=== PATIENT | male | born 1960 | race African-American/Black ===

== ENCOUNTER 2017-03-14 12:18 | Inpatient (IN) | payer OTHER ==
--- NOTE | 2017-03-14 18:11 | HP ---
Admission [facility] Chief Complaint: I WANT TO GO TO REHAB COMPLETED ACI DETOX DISCHARGED 03/617 Allergies/Adverse Reactions: Allergies Allergy/AdvReac Type Severity Reaction Status Date / Time Fish Containing Products Allergy Severe Difficulty Verified 03/14/17 16:52 Breathing lisinopril Allergy Severe Swelling Verified 03/14/17 16:52 haloperidol [From Haldol] AdvReac Severe Verified 03/14/17 16:52 haloperidol lactate AdvReac Severe Verified 03/14/17 16:52 [From Haldol] History of Present Illness: 56 YEARS OLD MALE WITH LONG HISTORY OF ALCOHOL, OPIATE, COCAINE DEPENDENCE HAS HYPERTENSION Exam Limitations: No Limitations - Ebola screening Have you traveled outside of the country in the last 21 days: No Have you had contact with anyone from an Ebola affected area: No Have you been sick,other than usual withdrawal symptoms: No Do you have a fever: No - Review of Systems Constitutional: Weight Stable EENT: reports: Blurred Vision (EYE GLASSES) Respiratory: reports: No Symptoms reported Cardiac: reports: No Symptoms Reported GI: reports: No Symptoms Reported : reports: No Symptoms Reported Musculoskeletal: reports: No Symptoms Reported Integumentary: reports: No Symptoms Reported Neuro: reports: No Symptoms reported Endocrine: reports: No Symptoms Reported Hematology: reports: No Symptoms Reported Psychiatric: reports: Judgement Intact, Mood/Affect Appropiate, Orientated x3 Other Systems: Reviewed and Negative Patient History - Patient Medical History Hx Anemia: No Hx Asthma: No Hx Chronic Obstructive Pulmonary Disease (COPD): No Hx Cancer: No Hx Cardiac Disorders: No Hx Congestive Heart Failure: No Hx Hypertension: Yes Hx Hypercholesterolemia: No Hx Pacemaker: No HX Cerebrovascular Accident: No Hx Seizures: No Hx Dementia: No Hx Diabetes: No Hx Gastrointestinal Disorders: No Hx Liver Disease: No Hx Genitourinary Disorders: No Hx Sexually Transmitted Disorders: No Hx Renal Disease (ESRD): No Hx Thyroid Disease: No Hx Human Immunodeficiency Virus (HIV): No Hx Hepatitis C: No Hx Depression: No Hx Suicide Attempt: Yes (CUT WRISTS 1997) Hx Bipolar Disorder: No Hx Schizophrenia: Yes - Patient Surgical History Past Surgical History: Yes Hx Neurologic Surgery: No Hx Cataract Extraction: No Hx Cardiac Surgery: No Hx Lung Surgery: No Hx Breast Surgery: No Hx Breast Biopsy: No Hx Abdominal Surgery: Yes (RIGHT TESTICLE AGE 9) Hx Appendectomy: Yes (9 YEARS OLD) Hx Genitourinary Surgery: Yes (RIGHT KIDNEY TUMOR REMOVED 2014) Hx Orthopedic Surgery: No Anesthesia Reaction: No - PPD History Previous Implant?: Yes Documented Results: Negative w/o proof Implanted On Prior R Admission?: No PPD to be Administered?: Yes - Smoking Cessation Smoking history: Never smoked Have you smoked in the past 12 months: No Hx Chewing Tobacco Use: No Initiated information on smoking cessation: No - Substance & Tx. History Hx Alcohol Use: Yes Hx Substance Use: Yes Substance Use Type: Alcohol, Cocaine, Heroin Hx Substance Use Treatment: Yes ([facility] 03/2017) - Substances Abused Alcohol Route: Oral Frequency: Daily Amount used: 2 and 1/2 pints vodka Age of first use: 14 Date of Last Use: 03/09/17 Crack Route: Smoking Frequency: Daily Amount used: $200 Age of first use: 29 Date of Last Use: 03/09/17 Heroin Route: Inhalation Frequency: Daily Amount used: 3 bags Age of first use: 29 Date of Last Use: 03/10/17 Family Disease History - Family Disease History Family Disease History: Heart Disease: Mother, Brother, Sister, Other: Father ( /SHOT) Admission Physical Exam S - Vital Signs Vital Signs: Vital Signs - 24 hr 03/14/17 14:15 Temperature 97.9 F Pulse Rate 64 Respiratory 20 Rate Blood Pressure 162/88 - Physical General Appearance: Yes: No Apparent Distress, Appropriately Dressed, Obese HEENTM: Yes: Hearing grossly Normal, Normal ENT Inspection, Normocephalic, Normal Voice Respiratory: Yes: Chest Non-Tender, Lungs Clear, Normal Breath Sounds, No Respiratory Distress, No Accessory Muscle Use Neck: Yes: Supple, Trachea in good position Breast: Yes: Breasts Symetrical Cardiology: Yes: Regular Rhythm, Regular Rate, S1, S2 Abdominal: Yes: Normal Bowel Sounds, Non Tender, Flat, Soft Genitourinary: Yes: Within Normal Limits Back: Yes: Normal Inspection Musculoskeletal: Yes: full range of Motion, Gait Steady Extremities: Yes: Normal Inspection, Normal Range of Motion, Non-Tender Neurological: Yes: Fully Oriented, Alert, Motor Strength 5/5, Normal Mood/Affect , Normal Response Integumentary: Yes: Warm Lymphatic: Yes: Within Normal Limits - Diagnostic (1) Alcohol dependence with uncomplicated withdrawal Current Visit: Yes Status: Acute (2) Opioid dependence with withdrawal Current Visit: Yes Status: Acute (3) Cocaine dependence, uncomplicated Current Visit: Yes Status: Chronic (4) Hypertension Current Visit: Yes Status: Acute Qualifiers: Hypertension type: essential hypertension Qualified Code(s): I10 - Essential (primary) hypertension; I10 - Essential (primary) hypertension; I10 - Essential (primary) hypertension (5) Schizoaffective disorder Current Visit: Yes Status: Suspected Qualifiers: Schizoaffective disorder type: unspecified Qualified Code(s): F25.9 - Schizoaffective disorder, unspecified; F25.9 - Schizoaffective disorder, unspecified; F25.9 - Schizoaffective disorder, unspecified; F25.9 - Schizoaffective disorder, unspecified Cleared for Admission S - Detox or Rehab [facility] Level of Care: Observation Bed Detox Regimen/Protocol: Not Applicable Claeared for Rehab Admission: Yes S Breath Alcohol Content Breath Alcohol Content: 0 Vital Signs - Vital Signs BP Location: Left Arm Blood Pressure Position: Sitting - Height Height: 5 ft 11 in - Weight Weight: 280 lb Weight Measurement Method: Standing Scale Body Mass Index (BMI): 39.0 - Bowel Function Bowel Movement: Yes Urine Drug Screen - Results Drug Screen Negative: No Urine Drug Screen Results: BZO-Benzodiazepines Inpatient Rehab Admission - Initial Determination Are CD services needed?: Yes Free of communicable disease: Yes Not in need of hospitalization: Yes - Rehab Admission Criteria Previous failed treatment: Yes Poor recovery environment: Yes Comorbidities: Yes Lacks judgement: No Patient is meeting Inpatient Rehab admission criteria:: Yes
[2017-03-14] MEDS ORDERED: guaiFENesin/D-METHORPHAN HB 10 ML UNIT-DOSE CUPS PO PRN (18:15)
[2017-03-14] MEDS ORDERED: P-EPHED 60MG/TRIPROLIDI 2.5MG TABLET PO PRN (18:15)
[2017-03-14] MEDS ORDERED: MAGNESIUM CITRATE 300 ML BOTTLE PO PRN (18:15)
[2017-03-14] MEDS ORDERED: MENTHOL/PHENOL 1 EACH UD MM PRN (18:15)
[2017-03-14] MEDS ORDERED: MAG HYDROX/AL HYDROX/SIMETH 30 ML UNIT-DOSE CUP PO PRN (18:15)
[2017-03-14] MEDS ORDERED: MAGNESIUM HYDROX 2400MG/30ML ORAL SUSPENSION 30 ML CUP PO PRN (18:15)
[2017-03-14] MEDS ORDERED: LOPERAMIDE HCL 2 MG CAPSULE PO PRN (18:15)
[2017-03-14] MEDS ORDERED: ACETAMINOPHEN 325 MG TABLET (FP) PO PRN (18:15)
[2017-03-14 18:38] VITALS: BMI 39.0
[2017-03-14] MEDS ORDERED: NIFEdipine E.R 60 MG TABLET (UD) PO ONE (22:00)
[2017-03-14] MEDS: THIAMINE HCL 100 MG TABLET (FP) PO SCH (22:02)
--- NOTE | 2017-03-14 22:43 | PN ---
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 New admission : 56 y/o AA male with Schizoaffective Disorder. Additional issues : alcohol/opiate/cocaine dependence. Discharged from [facility]/referred to [facility] on 03/14/17. Medications : buspar 20 mg po bid + prozac 40 mg/day + zyprexa 10 mg po bid. Spoke to patient via telephone.History taken.S report reviewed. Mr Pineda insists on getting his evening dose of zyprexa + buspar. Will only order olanzapine 10 mg po (one dose). Side effects/benefits discussed with patient. Full regimen to be determined in AM.
[2017-03-14] MEDS ORDERED: OLANZapine 10 MG TABLET PO ONE (22:51)
[2017-03-15 00:26] LABS: PH,URINE 6.5 (5.0-8.0); URINE APPEARANCE CLEAR; URINE BILIRUBIN NEGATIVE (NEGATIVE); URINE BLOOD NEGATIVE (NEGATIVE); URINE COLOR LT. YELLOW; URINE GLUCOSE (UA) NEGATIVE (NEGATIVE); URINE KETONE NEGATIVE (NEGATIVE); URINE NITRITE NEGATIVE (NEGATIVE); URINE PROTEIN NEGATIVE (NEGATIVE); URINE UROBILINOGEN 0.2 mg/dL (0.2-1.0)
[2017-03-15] MEDS: cloNIDine HCL 0.1 MG TABLET PO PRN (07:27)
[2017-03-15 09:59] LABS: URINE LEUK ESTERASE Negative (NEGATIVE)
[2017-03-15] MEDS: HYDROCHLOROTHIAZIDE 25 MG TABLET (FP) PO SCH (10:24)
[2017-03-15] MEDS: LOSARTAN POTASSIUM 50 MG TABLET (FP) PO SCH (10:24)
[2017-03-15] MEDS: PRENATAL VITAMINS W/ FOLIC ACID TABLET (FP) PO SCH (10:24)
[2017-03-15] MEDS: NIFEdipine E.R. 90 MG TABLET (FP) PO SCH (10:24)
[2017-03-15] MEDS: RIFAMPIN PO SCH ×3 (10:25→17:31)
[2017-03-15] MEDS: LEVOFLOXACIN PO SCH (10:25)
[2017-03-15] MEDS ORDERED: metroNIDAZOLE 250 MG TABLET PO ONE (10:58)
[2017-03-15] MEDS ORDERED: metroNIDAZOLE 250 MG TABLET PO SCH (11:00)
[2017-03-15] MEDS ORDERED: busPIRone HCL 10 MG TABLET (FP) PO ONE (11:06)
[2017-03-15] MEDS: OLANZapine 10 MG TABLET PO SCH ×2 (11:09→21:41)
[2017-03-15] MEDS: FLUoxetine HCL 20 MG CAPSULE (FP) PO SCH (11:09)
[2017-03-15] MEDS: PATIENT'S OWN MEDICATION (NON-FORMULARY) (Metronidazole [Flagyl -] 500 MG) PO SCH ×3 (11:48→21:41)
--- NOTE | 2017-03-15 11:56 | HP ---
Psychiatrist Admission - Data Date of interview: 03/15/17 Admission source: I Identifying data: This is the first 5N inpatient rehabilitation admission for this 56 year old single AA male unemployed and supported on SSI, residing in the [facility]. Medical History: Hypertension, Rt kidney tumor removal 2014, Psychiatric History: Patient is irritable and poor historian, reports carries a diagnosis of schizoaffective disorder, admits several psychiatric hospitalizations "over ten years period", sees the psychiatrist Meloyn Flores at [facility] and currently on Buspar 20 mg pot tid, Zyprexa 10 mg po bid and Prozac 40 mg po daily. Physical/Sexual Abuse/Trauma History: Denies Vital Signs: Vital Signs - 24 hr 03/14/17 03/14/17 03/15/17 14:15 21:07 01:12 Temperature 97.9 F 97.9 F Pulse Rate 64 67 Respiratory 20 18 16 Rate Blood Pressure 162/88 152/90 03/15/17 03/15/17 03/15/17 03:30 07:10 09:50 Temperature 98.0 F Pulse Rate 65 69 Respiratory 16 18 20 Rate Blood Pressure 156/93 148/67 Allergies/Adverse Reactions: Allergies Allergy/AdvReac Type Severity Reaction Status Date / Time Fish Containing Products Allergy Severe Difficulty Verified 03/14/17 16:52 Breathing lisinopril Allergy Severe Swelling Verified 03/14/17 16:52 haloperidol [From Haldol] AdvReac Severe Verified 03/14/17 16:52 haloperidol lactate AdvReac Severe Verified 03/14/17 16:52 [From Haldol] Date of last physical exam: 03/14/17 Concur with the findings of this exam: Yes - Substance Abuse/Tx History Hx Alcohol Use: Yes (started at age of 14, daily use of 1 and 1/2 pint of vodka) Hx Substance Use: Yes Substance Use Type: Cocaine (started at age of 29, daily for $200), Heroin (3 bags daily, started at age of 29.) Hx Substance Use Treatment: Yes Mental Status Exam - Mental Status Exam Alert and Oriented to: Time, Place, Person Cognitive Function: Grossly Intact Patient Appearance: Unkempt, Disheveled Mood: Hostile, Irritable Affect: Mood Congruent Patient Behavior: Cooperative Speech Pattern: Appropriate Voice Loudness: Normal Thought Process: Goal Oriented Thought Disorder: Paranoid Ideation (on and off "When not on meds") Hallucinations: Denies, Auditory ("when not on meds") Suicidal Ideation: Denies Homicidal Ideation: Denies Insight/Judgement: Fair Sleep: Fair Appetite: Fair Muscle strength/Tone: Normal Gait/Station: Normal Psychiatric Findings - Problem List (Skipwith 1, 2,3) (1) Schizoaffective disorder Current Visit: Yes Status: Suspected Qualifiers: Schizoaffective disorder type: unspecified Qualified Code(s): F25.9 - Schizoaffective disorder, unspecified; F25.9 - Schizoaffective disorder, unspecified; F25.9 - Schizoaffective disorder, unspecified; F25.9 - Schizoaffective disorder, unspecified (2) Alcohol dependence Current Visit: Yes Status: Acute (3) Cocaine dependence Current Visit: Yes Status: Acute (4) Opioid dependence Current Visit: Yes Status: Acute - Initial Treatment Plan Initial Treatment Plan: Will continue his current medications, monitor progress as needed.
[2017-03-15] MEDS: busPIRone HCL 10 MG TABLET (FP) PO SCH ×2 (14:10→21:41)
[2017-03-15 14:35] LABS: MCHC 33.4 g/dl (32.0-35.9); MEAN CELL VOLUME 86.8 fl (80-96); MEAN PLT VOLUME 8.4 fl (7.5-11.1); PLATELET COUNT 225 K/MM3 (134-434); RDW 13.6 % (11.9-15.9); WHITE BLOOD COUNT 4.9 K/mm3 (4.0-10.0)
[2017-03-15 15:15] LABS: ALBUMIN 3.1 g/dl (3.4-5.0); ANION GAP 12 (8-16); CALCIUM 8.1 mg/dL (8.5-10.1); CO2 27 mmol/L (21-32); CREATININE 1.2 mg/dL (0.7-1.3); GLUCOSE,RANDOM 191 mg/dL (74-106); SGOT/AST 21 U/L (15-37); SGPT/ALT 36 U/L (12-78)
[2017-03-15 15:16] LABS: ALK PHOS 220 U/L (45-117); BILIRUBIN,TOTAL 0.1 mg/dL (0.2-1.0); TOT PROT 7.3 g/dl (6.4-8.2)
--- NOTE | 2017-03-15 21:26 | EKG ---
Test Reason : Blood Pressure : / mmHG Vent. Rate : 060 BPM Atrial Rate : 060 BPM P-R Int : 184 ms QRS Dur : 090 ms QT Int : 446 ms P-R-T Axes : 072 -10 -34 degrees QTc Int : 446 ms NORMAL SINUS RHYTHM POSSIBLE LEFT ATRIAL ENLARGEMENT SEPTAL INFARCT , AGE UNDETERMINED ABNORMAL ECG NO PREVIOUS ECGS AVAILABLE REPEAT EKG IF CLINICALLY INDICATED Confirmed by JENN JOHNSON MD ([id number]) on 03/15/2017 9:26:07 PM Referred By: Rosendo SHRESTHA Confirmed By:JENN JOHNSON MD
[2017-03-15] MEDS: THIAMINE HCL 100 MG TABLET (FP) PO SCH (21:41)
[2017-03-16] MEDS: busPIRone HCL 10 MG TABLET (FP) PO SCH ×3 (06:35→21:40)
[2017-03-16] MEDS: LEVOFLOXACIN PO SCH (06:36)
[2017-03-16] MEDS: PATIENT'S OWN MEDICATION (NON-FORMULARY) (Metronidazole [Flagyl -] 500 MG) PO SCH ×3 (06:36→21:40)
[2017-03-16] MEDS: RIFAMPIN PO SCH ×2 (07:37→17:04)
[2017-03-16] MEDS: OLANZapine 10 MG TABLET PO SCH ×2 (09:28→21:40)
[2017-03-16] MEDS: LOSARTAN POTASSIUM 50 MG TABLET (FP) PO SCH (09:28)
[2017-03-16] MEDS: FLUoxetine HCL 20 MG CAPSULE (FP) PO SCH (09:28)
[2017-03-16] MEDS: NIFEdipine E.R. 90 MG TABLET (FP) PO SCH (09:28)
[2017-03-16] MEDS: PRENATAL VITAMINS W/ FOLIC ACID TABLET (FP) PO SCH (09:28)
[2017-03-16] MEDS: cloNIDine HCL 0.1 MG TABLET PO PRN ×2 (09:30→21:42)
[2017-03-16] MEDS: HYDROCHLOROTHIAZIDE 25 MG TABLET (FP) PO SCH (09:31)
[2017-03-16] MEDS: THIAMINE HCL 100 MG TABLET (FP) PO SCH (21:40)
[2017-03-16] MEDS: NIFEdipine E.R 60 MG TABLET (UD) PO SCH (22:12)
[2017-03-17] MEDS: LEVOFLOXACIN PO SCH (06:14)
[2017-03-17] MEDS: PATIENT'S OWN MEDICATION (NON-FORMULARY) (Metronidazole [Flagyl -] 500 MG) PO SCH ×3 (06:14→21:57)
[2017-03-17] MEDS: RIFAMPIN PO SCH ×2 (06:14→16:45)
[2017-03-17] MEDS: busPIRone HCL 10 MG TABLET (FP) PO SCH ×3 (06:14→21:57)
[2017-03-17] MEDS: HYDROCHLOROTHIAZIDE 25 MG TABLET (FP) PO SCH (10:30)
[2017-03-17] MEDS: LOSARTAN POTASSIUM 50 MG TABLET (FP) PO SCH (10:30)
[2017-03-17] MEDS: PRENATAL VITAMINS W/ FOLIC ACID TABLET (FP) PO SCH (10:30)
[2017-03-17] MEDS: OLANZapine 10 MG TABLET PO SCH ×2 (10:31→21:57)
[2017-03-17] MEDS: FLUoxetine HCL 20 MG CAPSULE (FP) PO SCH (10:31)
[2017-03-17] MEDS: NIFEdipine E.R. 90 MG TABLET (FP) PO SCH (10:31)
[2017-03-17] MEDS: cloNIDine HCL 0.1 MG TABLET PO PRN ×2 (14:21→21:57)
[2017-03-17] MEDS: THIAMINE HCL 100 MG TABLET (FP) PO SCH (21:57)
[2017-03-17] MEDS: NIFEdipine E.R 60 MG TABLET (UD) PO SCH (21:57)
[2017-03-18] MEDS: busPIRone HCL 10 MG TABLET (FP) PO SCH ×3 (06:13→22:09)
[2017-03-18] MEDS: cloNIDine HCL 0.1 MG TABLET PO PRN ×2 (06:13→22:10)
[2017-03-18] MEDS: LEVOFLOXACIN PO SCH (06:14)
[2017-03-18] MEDS: PATIENT'S OWN MEDICATION (NON-FORMULARY) (Metronidazole [Flagyl -] 500 MG) PO SCH ×3 (06:55→22:11)
[2017-03-18] MEDS: RIFAMPIN PO SCH ×2 (07:04→16:40)
[2017-03-18] MEDS: LOSARTAN POTASSIUM 50 MG TABLET (FP) PO SCH (10:40)
[2017-03-18] MEDS: PRENATAL VITAMINS W/ FOLIC ACID TABLET (FP) PO SCH (10:40)
[2017-03-18] MEDS: NIFEdipine E.R. 90 MG TABLET (FP) PO SCH (10:41)
[2017-03-18] MEDS: HYDROCHLOROTHIAZIDE 25 MG TABLET (FP) PO SCH (10:41)
[2017-03-18] MEDS: FLUoxetine HCL 20 MG CAPSULE (FP) PO SCH (10:41)
[2017-03-18] MEDS: OLANZapine 10 MG TABLET PO SCH ×2 (10:41→22:09)
[2017-03-18] MEDS: hydrOXYzine PAMOATE 50 MG CAPSULE (FP) PO PRN (11:41)
--- NOTE | 2017-03-18 12:06 | PN ---
Psychiatric Progress Note Vital Signs: Vital Signs Period Temp Pulse Resp BP Sys/Carter Pulse Ox Last 24 Hr 98.4 F 62-66 18-20 154-164/89-94 Date of Session: 03/18/17 Chief Complaint:: "Anxious" HPI: Patient is addressing alcohol, cocaine, opioid dependence comorbid Schizoffective disorder. ROS: WNL Current Medications: Active Medications Generic Name Dose Route Start Last Admin Trade Name Freq PRN Reason Stop Dose Admin Acetaminophen 650 mg 03/14/17 18:15 Tylenol - PO Q4H PRN PAIN Al Hydroxide/Mg Hydroxide 30 ml 03/14/17 18:15 Mylanta Oral Suspension - PO Q6H PRN DYSPEPSIA Buspirone HCl 20 mg 03/15/17 14:00 03/18/17 06:13 Buspar - PO 20 mg TID [place] Administration Clonidine 0.1 mg 03/14/17 18:28 03/18/17 06:13 Catapres - PO 0.1 mg BID PRN Administration HYPERTENSION Eucalyptus/Menthol/Phenol/Sorbitol 1 each 03/14/17 18:15 Cepastat Lozenge - MM Q4H PRN SORE THROAT Fluoxetine HCl 40 mg 03/15/17 11:15 03/18/17 10:41 Prozac - PO 40 mg DAILY [place] Administration Guaifenesin 10 ml 03/14/17 18:15 Robitussin Dm - PO Q6H PRN COUGH Hydrochlorothiazide 50 mg 03/15/17 10:00 03/18/17 10:41 Hctz - PO 50 mg DAILY [place] Administration Hydroxyzine Pamoate 50 mg 03/18/17 11:31 03/18/17 11:41 Vistaril - PO 50 mg Q4H PRN Administration FOR ITCHING Ibuprofen 400 mg 03/14/17 18:15 Motrin - PO Q6H PRN SEVERE PAIN Loperamide HCl 4 mg 03/14/17 18:15 Imodium - PO Q6H PRN DIARRHEA Losartan Potassium 100 mg 03/15/17 10:00 03/18/17 10:40 Cozaar - PO 100 mg DAILY [place] Administration Magnesium Citrate 300 ml 03/14/17 18:15 Citroma - PO Q48H PRN CONSTIPATION Magnesium Hydroxide 30 ml 03/14/17 18:15 Milk Of Magnesia - PO DAILY PRN CONSTIPATION Nifedipine 90 mg 03/15/17 10:00 03/18/17 10:41 Procardia Xl - PO 90 mg DAILY [place] Administration Nifedipine 60 mg 03/16/17 22:00 03/17/17 21:57 Procardia Xl - PO 60 mg HS [place] Administration Non-Formulary Medication 500 mg 03/14/17 22:00 03/18/17 06:55 Metronidazole [Flagyl -] PO 500 mg TID [place] Administration Non-Formulary Medication 500 mg 03/15/17 10:00 03/18/17 06:14 Levofloxacin [Levaquin -] PO 500 mg DAILY@0600 [place] Administration Non-Formulary Medication 300 mg 03/15/17 16:30 03/18/17 07:04 Rifampin [Rifadin -] PO 300 mg BIDAC [place] Administration Olanzapine 10 mg 03/15/17 11:00 03/18/17 10:41 Zyprexa - PO 10 mg BID [place] Administration Multivit/Folic Acid/Iron 1 tab 03/15/17 10:00 03/18/17 10:40 Vitamins (Sjr) - PO 1 tab DAILY [place] Administration Pseudoephedrine/Triprolidine 1 combo 03/14/17 18:15 Actifed - PO TID PRN NASAL CONGESTION Thiamine HCl 100 mg 03/14/17 22:00 03/17/17 21:57 Vitamin B1 - PO 100 mg HS [place] Administration Medication(s) Change(s): add Vistaril 50 mg po q 4 hrs prn Current Side Effect: No Lab tests ordered: No Lab tests reviewed: Yes Provider note:: Patient reports he has a difficult time to adjust to the unit, states "it's too many people on the unit, they are noisy", states that he feels very anxious and having pressure in his head then noises. Reports he once completed the other rehabilitation program which was unisex and states he was more comfortable there even he had to attend 7 groups, states he gets irritated and restless here. Reviewed with the patient he past medications, states that Seroquel increased his weight, he gained extra lbs, Haldol had a dystonic reaction, Pavel and Nava "dyskinesia and heart problems", discussed side- effects of Risperdal with the patient he declined, states he might leave this place. Psycheducation and emotional supports provided, patient was recommended to take Vistaril PRN will continue to monitor progress. Total face to face time:: 35 Mental Status Exam - Mental Status Exam Alert and Oriented to: Time, Place, Person Cognitive Function: Grossly Intact Patient Appearance: Well Groomed Mood: Anxious Affect: Mood Congruent Patient Behavior: Cooperative Speech Pattern: Clear, Appropriate Voice Loudness: Normal Thought Process: Intact, Goal Oriented Thought Disorder: Not Present Hallucinations: Denies Suicidal Ideation: Denies Homicidal Ideation: Denies Insight/Judgement: Fair Sleep: Fair Appetite: Fair Muscle strength/Tone: Normal Gait/Station: Normal Psychiatric Treatment Plan - Problem List (1) Schizoaffective disorder Current Visit: Yes Qualifiers: Schizoaffective disorder type: unspecified Qualified Code(s): F25.9 - Schizoaffective disorder, unspecified (2) Alcohol dependence Current Visit: Yes (3) Cocaine dependence Current Visit: Yes (4) Opioid dependence Current Visit: Yes
[2017-03-18] MEDS: THIAMINE HCL 100 MG TABLET (FP) PO SCH (22:09)
[2017-03-18] MEDS: NIFEdipine E.R 60 MG TABLET (UD) PO SCH (22:09)
[2017-03-19] MEDS: RIFAMPIN PO SCH ×2 (06:30→16:57)
[2017-03-19] MEDS: busPIRone HCL 10 MG TABLET (FP) PO SCH ×3 (06:30→21:48)
[2017-03-19] MEDS: LEVOFLOXACIN PO SCH (06:31)
[2017-03-19] MEDS: PATIENT'S OWN MEDICATION (NON-FORMULARY) (Metronidazole [Flagyl -] 500 MG) PO SCH ×3 (06:31→21:50)
[2017-03-19] MEDS: cloNIDine HCL 0.1 MG TABLET PO PRN ×2 (06:32→21:49)
[2017-03-19] MEDS: hydrOXYzine PAMOATE 50 MG CAPSULE (FP) PO PRN (08:58)
[2017-03-19] MEDS: LOSARTAN POTASSIUM 50 MG TABLET (FP) PO SCH (10:21)
[2017-03-19] MEDS: NIFEdipine E.R. 90 MG TABLET (FP) PO SCH (10:21)
[2017-03-19] MEDS: FLUoxetine HCL 20 MG CAPSULE (FP) PO SCH (10:21)
[2017-03-19] MEDS: HYDROCHLOROTHIAZIDE 25 MG TABLET (FP) PO SCH (10:21)
[2017-03-19] MEDS: PRENATAL VITAMINS W/ FOLIC ACID TABLET (FP) PO SCH (10:22)
[2017-03-19] MEDS: OLANZapine 10 MG TABLET PO SCH ×2 (10:22→21:48)
[2017-03-19] MEDS: NIFEdipine E.R 60 MG TABLET (UD) PO SCH (21:48)
[2017-03-19] MEDS: THIAMINE HCL 100 MG TABLET (FP) PO SCH (21:49)
[2017-03-20] MEDS: busPIRone HCL 10 MG TABLET (FP) PO SCH ×3 (06:31→22:06)
[2017-03-20] MEDS: LEVOFLOXACIN PO SCH (06:31)
[2017-03-20] MEDS: RIFAMPIN PO SCH ×2 (06:31→16:42)
[2017-03-20] MEDS: PATIENT'S OWN MEDICATION (NON-FORMULARY) (Metronidazole [Flagyl -] 500 MG) PO SCH ×3 (06:32→22:08)
[2017-03-20] MEDS: OLANZapine 10 MG TABLET PO SCH ×2 (09:17→22:07)
[2017-03-20] MEDS: HYDROCHLOROTHIAZIDE 25 MG TABLET (FP) PO SCH (09:17)
[2017-03-20] MEDS: NIFEdipine E.R. 90 MG TABLET (FP) PO SCH (09:17)
[2017-03-20] MEDS: FLUoxetine HCL 20 MG CAPSULE (FP) PO SCH (09:17)
[2017-03-20] MEDS: LOSARTAN POTASSIUM 50 MG TABLET (FP) PO SCH (09:17)
[2017-03-20] MEDS: PRENATAL VITAMINS W/ FOLIC ACID TABLET (FP) PO SCH (09:17)
[2017-03-20] MEDS: cloNIDine HCL 0.1 MG TABLET PO PRN (16:48)
[2017-03-20] MEDS: THIAMINE HCL 100 MG TABLET (FP) PO SCH (22:07)
[2017-03-20] MEDS: NIFEdipine E.R 60 MG TABLET (UD) PO SCH (22:07)
[2017-03-20] MEDS: hydrOXYzine PAMOATE 50 MG CAPSULE (FP) PO PRN (22:09)
[2017-03-21] MEDS: cloNIDine HCL 0.1 MG TABLET PO PRN ×2 (06:11→21:52)
[2017-03-21] MEDS: busPIRone HCL 10 MG TABLET (FP) PO SCH ×3 (06:11→21:53)
[2017-03-21] MEDS: LEVOFLOXACIN PO SCH (06:12)
[2017-03-21] MEDS: RIFAMPIN PO SCH ×2 (06:12→16:47)
[2017-03-21] MEDS: PATIENT'S OWN MEDICATION (NON-FORMULARY) (Metronidazole [Flagyl -] 500 MG) PO SCH ×3 (06:12→21:54)
[2017-03-21] MEDS: LOSARTAN POTASSIUM 50 MG TABLET (FP) PO SCH ×2 (06:50→10:35)
[2017-03-21] MEDS: HYDROCHLOROTHIAZIDE 25 MG TABLET (FP) PO SCH ×2 (06:51→10:35)
[2017-03-21] MEDS: NIFEdipine E.R. 90 MG TABLET (FP) PO SCH ×2 (06:51→10:35)
[2017-03-21] MEDS: PRENATAL VITAMINS W/ FOLIC ACID TABLET (FP) PO SCH (10:21)
[2017-03-21] MEDS: OLANZapine 10 MG TABLET PO SCH (10:22)
[2017-03-21] MEDS: FLUoxetine HCL 20 MG CAPSULE (FP) PO SCH (10:22)
[2017-03-21] MEDS: hydrOXYzine PAMOATE 50 MG CAPSULE (FP) PO PRN ×2 (10:24→21:55)
--- NOTE | 2017-03-21 13:55 | PN ---
Psychiatric Progress Note Vital Signs: Vital Signs Period Temp Pulse Resp BP Sys/Carter Pulse Ox Last 24 Hr 97.7 F 64-76 18-20 158-207/81-95 Date of Session: 03/21/17 Chief Complaint:: "I am hear voices" HPI: Patient is addressing alcohol, cocaine, opioid dependence comorbid Schizoffective disorder. ROS: WNL Current Medications: Active Medications Generic Name Dose Route Start Last Admin Trade Name Freq PRN Reason Stop Dose Admin Acetaminophen 650 mg 03/14/17 18:15 Tylenol - PO Q4H PRN PAIN Al Hydroxide/Mg Hydroxide 30 ml 03/14/17 18:15 Mylanta Oral Suspension - PO Q6H PRN DYSPEPSIA Buspirone HCl 20 mg 03/15/17 14:00 03/21/17 06:11 Buspar - PO 20 mg TID [place] Administration Clonidine 0.1 mg 03/14/17 18:28 03/21/17 06:11 Catapres - PO 0.1 mg BID PRN Administration HYPERTENSION Eucalyptus/Menthol/Phenol/Sorbitol 1 each 03/14/17 18:15 Cepastat Lozenge - MM Q4H PRN SORE THROAT Fluoxetine HCl 40 mg 03/15/17 11:15 03/21/17 10:22 Prozac - PO 40 mg DAILY [place] Administration Guaifenesin 10 ml 03/14/17 18:15 Robitussin Dm - PO Q6H PRN COUGH Hydrochlorothiazide 50 mg 03/15/17 10:00 03/21/17 10:35 Hctz - PO Not Given DAILY [facility] Hydroxyzine Pamoate 50 mg 03/18/17 11:31 03/21/17 10:24 Vistaril - PO 50 mg Q4H PRN Administration FOR ITCHING Ibuprofen 400 mg 03/14/17 18:15 Motrin - PO Q6H PRN SEVERE PAIN Loperamide HCl 4 mg 03/14/17 18:15 Imodium - PO Q6H PRN DIARRHEA Losartan Potassium 100 mg 03/15/17 10:00 03/21/17 10:35 Cozaar - PO Not Given DAILY [place] Magnesium Citrate 300 ml 03/14/17 18:15 Citroma - PO Q48H PRN CONSTIPATION Magnesium Hydroxide 30 ml 03/14/17 18:15 Milk Of Magnesia - PO DAILY PRN CONSTIPATION Nifedipine 90 mg 03/15/17 10:00 03/21/17 10:35 Procardia Xl - PO Not Given DAILY [place] Nifedipine 60 mg 03/16/17 22:00 03/20/17 22:07 Procardia Xl - PO 60 mg HS [place] Administration Non-Formulary Medication 500 mg 03/14/17 22:00 03/21/17 06:12 Metronidazole [Flagyl -] PO 500 mg TID [place] Administration Non-Formulary Medication 500 mg 03/15/17 10:00 03/21/17 06:12 Levofloxacin [Levaquin -] PO 500 mg DAILY@0600 [place] Administration Non-Formulary Medication 300 mg 03/15/17 16:30 03/21/17 06:12 Rifampin [Rifadin -] PO 300 mg BIDAC [place] Administration Olanzapine 10 mg 03/15/17 11:00 03/21/17 10:22 Zyprexa - PO 10 mg BID [place] Administration Olanzapine 5 mg 03/21/17 13:39 Zyprexa - PO 03/21/17 13:40 ONCE ONE Multivit/Folic Acid/Iron 1 tab 03/15/17 10:00 03/21/17 10:21 Vitamins (Sjr) - PO 1 tab DAILY [place] Administration Pseudoephedrine/Triprolidine 1 combo 03/14/17 18:15 Actifed - PO TID PRN NASAL CONGESTION Thiamine HCl 100 mg 03/14/17 22:00 03/20/17 22:07 Vitamin B1 - PO 100 mg HS [place] Administration Medication(s) Change(s): stat Zyprexa 5 mg po, increase Zyprexa 15 mg po hs. Current Side Effect: No Lab tests ordered: No Lab tests reviewed: Yes Provider note:: Patient reports he started to hear voices today, at the begining he heard only noices, now voices coming outside his head calling his name "and telling nusty things about me", patient reports that he really wants to complete this treatment and will try his best to go to the groups and thesame time needs time to be alone. Reviewed current eddy pst treatment with the patient, recommended to take stat Zyprexa 5 and increase hs to 15 mg. Supportive therapy and psychoeducation provided, paatient was encouraged to reach out the staff for any negative thoughts, patient verbalized understanding , continue to monitor progress. Total face to face time:: 35 Mental Status Exam - Mental Status Exam Alert and Oriented to: Time, Place, Person Cognitive Function: Grossly Intact Patient Appearance: Well Groomed Mood: Sad, Anxious Affect: Mood Congruent Patient Behavior: Appropriate, Cooperative Speech Pattern: Clear Voice Loudness: Normal Thought Process: Goal Oriented Thought Disorder: Not Present Hallucinations: Auditory (voices calling his name) Suicidal Ideation: Denies Homicidal Ideation: Denies Insight/Judgement: Fair Sleep: Fair Appetite: Fair Muscle strength/Tone: Normal Gait/Station: Normal Psychiatric Treatment Plan - Problem List (1) Schizoaffective disorder Current Visit: Yes Qualifiers: Schizoaffective disorder type: unspecified Qualified Code(s): F25.9 - Schizoaffective disorder, unspecified (2) Alcohol dependence Current Visit: Yes (3) Cocaine dependence Current Visit: Yes (4) Opioid dependence Current Visit: Yes
[2017-03-21] MEDS ORDERED: OLANZapine 5 MG TABLET PO ONE (14:25)
[2017-03-21] MEDS: OLANZapine 7.5 MG TABLET PO SCH ×2 (14:39→21:52)
[2017-03-21] MEDS: NIFEdipine E.R 60 MG TABLET (UD) PO SCH (21:52)
[2017-03-21] MEDS: THIAMINE HCL 100 MG TABLET (FP) PO SCH (21:52)
[2017-03-22] MEDS: LEVOFLOXACIN PO SCH (06:21)
[2017-03-22] MEDS: busPIRone HCL 10 MG TABLET (FP) PO SCH ×3 (06:21→21:34)
[2017-03-22] MEDS: RIFAMPIN PO SCH ×2 (06:21→16:54)
[2017-03-22] MEDS: PATIENT'S OWN MEDICATION (NON-FORMULARY) (Metronidazole [Flagyl -] 500 MG) PO SCH ×3 (06:21→21:34)
[2017-03-22] MEDS: HYDROCHLOROTHIAZIDE 25 MG TABLET (FP) PO SCH (10:22)
[2017-03-22] MEDS: FLUoxetine HCL 20 MG CAPSULE (FP) PO SCH (10:22)
[2017-03-22] MEDS: NIFEdipine E.R. 90 MG TABLET (FP) PO SCH (10:22)
[2017-03-22] MEDS: PRENATAL VITAMINS W/ FOLIC ACID TABLET (FP) PO SCH (10:23)
[2017-03-22] MEDS: OLANZapine 10 MG TABLET PO SCH (10:23)
[2017-03-22] MEDS: LOSARTAN POTASSIUM 50 MG TABLET (FP) PO SCH (10:23)
[2017-03-22] MEDS: cloNIDine HCL 0.1 MG TABLET PO PRN ×2 (10:24→21:34)
[2017-03-22] MEDS: OLANZapine 7.5 MG TABLET PO SCH (21:34)
[2017-03-22] MEDS: NIFEdipine E.R 60 MG TABLET (UD) PO SCH (21:34)
[2017-03-22] MEDS: THIAMINE HCL 100 MG TABLET (FP) PO SCH (21:34)
[2017-03-23] MEDS: PATIENT'S OWN MEDICATION (NON-FORMULARY) (Metronidazole [Flagyl -] 500 MG) PO SCH ×3 (06:09→21:29)
[2017-03-23] MEDS: LEVOFLOXACIN PO SCH (06:09)
[2017-03-23] MEDS: busPIRone HCL 10 MG TABLET (FP) PO SCH ×3 (06:09→21:29)
[2017-03-23] MEDS: RIFAMPIN PO SCH ×2 (06:10→16:53)
[2017-03-23] MEDS: cloNIDine HCL 0.1 MG TABLET PO PRN ×2 (06:11→21:29)
[2017-03-23] MEDS: OLANZapine 10 MG TABLET PO SCH (10:27)
[2017-03-23] MEDS: LOSARTAN POTASSIUM 50 MG TABLET (FP) PO SCH (10:27)
[2017-03-23] MEDS: HYDROCHLOROTHIAZIDE 25 MG TABLET (FP) PO SCH (10:27)
[2017-03-23] MEDS: FLUoxetine HCL 20 MG CAPSULE (FP) PO SCH (10:27)
[2017-03-23] MEDS: PRENATAL VITAMINS W/ FOLIC ACID TABLET (FP) PO SCH (10:28)
[2017-03-23] MEDS: NIFEdipine E.R. 90 MG TABLET (FP) PO SCH (10:29)
[2017-03-23] MEDS: hydrOXYzine PAMOATE 50 MG CAPSULE (FP) PO PRN (14:45)
--- NOTE | 2017-03-23 14:58 | PN ---
[facility] Progress Note (SOAP) Subjective: c/o hydranitis suppurativa, staff questoning use of pillow. Objective: 03/23/17 14:49 Vital Signs - 8 hr 03/23/17 03/23/17 03/23/17 07:51 10:00 13:45 Temperature 97.8 F Pulse Rate 61 70 68 Respiratory 20 Rate Blood Pressure 146/81 168/76 146/81 Laboratory Tests 03/14/17 03/15/17 03/15/17 22:46 08:30 08:30 WBC 4.9 RBC 4.10 Hgb 11.9 Hct 35.6 MCV 86.8 MCH 29.0 MCHC 33.4 RDW 13.6 Plt Count 225 MPV 8.4 Sodium 142 Potassium 3.2 L Chloride 103 Carbon Dioxide 27 Anion Gap 12 BUN 9 Creatinine 1.2 Creat Clearance w eGFR > 60 Random Glucose 191 H POC Glucometer Calcium 8.1 L Total Bilirubin 0.1 L AST 21 ALT 36 Alkaline Phosphatase 220 H Total Protein 7.3 Albumin 3.1 L Urine Color Lt. yellow Urine Appearance Clear Urine pH 6.5 Ur Specific [place] 1.015 Urine Protein Negative Urine Glucose (UA) Negative Urine Ketones Negative Urine Blood Negative Urine Nitrite Negative Urine Bilirubin Negative Urine Urobilinogen 0.2 Ur Leukocyte Esterase Negative RPR Titer 03/15/17 03/17/17 08:30 06:13 WBC RBC Hgb Hct MCV MCH MCHC RDW Plt Count MPV Sodium Potassium Chloride Carbon Dioxide Anion Gap BUN Creatinine Creat Clearance w eGFR Random Glucose POC Glucometer 114 Calcium Total Bilirubin AST ALT Alkaline Phosphatase Total Protein Albumin Urine Color Urine Appearance Urine pH Ur Specific [place] Urine Protein Urine Glucose (UA) Urine Ketones Urine Blood Urine Nitrite Urine Bilirubin Urine Urobilinogen Ur Leukocyte Esterase RPR Titer Nonreactive 03/23/17 14:58 hypokalemia 03/23/17 14:58 multiple areas of scarred tissue from hydranitis suppurative , healing, pain whiole seating Assessment: 03/23/17 14:58 low k hydranitis suppuirativa, DM Plan: cont antibiotics, control sugar, supplement k, order for cushion placed for comfort
[2017-03-23] MEDS ORDERED: POTASSIUM CHLORIDE TABS 20 MEQ TABLET.ER (FP) PO ONE (15:24)
[2017-03-23] MEDS: OLANZapine 7.5 MG TABLET PO SCH (21:29)
[2017-03-23] MEDS: NIFEdipine E.R 60 MG TABLET (UD) PO SCH (21:29)
[2017-03-23] MEDS: THIAMINE HCL 100 MG TABLET (FP) PO SCH (21:29)
[2017-03-24] MEDS: PATIENT'S OWN MEDICATION (NON-FORMULARY) (Metronidazole [Flagyl -] 500 MG) PO SCH ×3 (06:13→21:39)
[2017-03-24] MEDS: LEVOFLOXACIN PO SCH (06:13)
[2017-03-24] MEDS: busPIRone HCL 10 MG TABLET (FP) PO SCH ×3 (06:13→21:39)
[2017-03-24] MEDS: RIFAMPIN PO SCH ×2 (06:13→16:36)
[2017-03-24] MEDS: FLUoxetine HCL 20 MG CAPSULE (FP) PO SCH (10:33)
[2017-03-24] MEDS: PRENATAL VITAMINS W/ FOLIC ACID TABLET (FP) PO SCH (10:33)
[2017-03-24] MEDS: LOSARTAN POTASSIUM 50 MG TABLET (FP) PO SCH (10:33)
[2017-03-24] MEDS: NIFEdipine E.R. 90 MG TABLET (FP) PO SCH (10:34)
[2017-03-24] MEDS: HYDROCHLOROTHIAZIDE 25 MG TABLET (FP) PO SCH (10:34)
[2017-03-24] MEDS: OLANZapine 10 MG TABLET PO SCH (10:34)
[2017-03-24] MEDS: hydrOXYzine PAMOATE 50 MG CAPSULE (FP) PO PRN (12:51)
[2017-03-24] MEDS: cloNIDine HCL 0.1 MG TABLET PO PRN (21:39)
[2017-03-24] MEDS: THIAMINE HCL 100 MG TABLET (FP) PO SCH (21:39)
[2017-03-24] MEDS: OLANZapine 7.5 MG TABLET PO SCH (21:39)
[2017-03-24] MEDS: NIFEdipine E.R 60 MG TABLET (UD) PO SCH (21:39)
[2017-03-25] MEDS: busPIRone HCL 10 MG TABLET (FP) PO SCH ×3 (06:34→21:46)
[2017-03-25] MEDS: LEVOFLOXACIN PO SCH (06:34)
[2017-03-25] MEDS: PATIENT'S OWN MEDICATION (NON-FORMULARY) (Metronidazole [Flagyl -] 500 MG) PO SCH ×3 (06:35→21:48)
[2017-03-25] MEDS: RIFAMPIN PO SCH ×2 (06:35→16:44)
[2017-03-25] MEDS: cloNIDine HCL 0.1 MG TABLET PO PRN ×2 (06:37→19:11)
[2017-03-25] MEDS: LOSARTAN POTASSIUM 50 MG TABLET (FP) PO SCH (10:30)
[2017-03-25] MEDS: FLUoxetine HCL 20 MG CAPSULE (FP) PO SCH (10:30)
[2017-03-25] MEDS: NIFEdipine E.R. 90 MG TABLET (FP) PO SCH (10:30)
[2017-03-25] MEDS: hydrOXYzine PAMOATE 50 MG CAPSULE (FP) PO PRN (10:31)
[2017-03-25] MEDS: PRENATAL VITAMINS W/ FOLIC ACID TABLET (FP) PO SCH (10:31)
[2017-03-25] MEDS: HYDROCHLOROTHIAZIDE 25 MG TABLET (FP) PO SCH (10:31)
[2017-03-25] MEDS: OLANZapine 10 MG TABLET PO SCH (10:31)
[2017-03-25] MEDS: IBUPROFEN 400 MG TABLET (FP) PO PRN (19:11)
[2017-03-25] MEDS: NIFEdipine E.R 60 MG TABLET (UD) PO SCH (21:46)
[2017-03-25] MEDS: THIAMINE HCL 100 MG TABLET (FP) PO SCH (21:46)
[2017-03-25] MEDS: OLANZapine 7.5 MG TABLET PO SCH (21:46)
[2017-03-26] MEDS: RIFAMPIN PO SCH ×2 (06:07→17:04)
[2017-03-26] MEDS: busPIRone HCL 10 MG TABLET (FP) PO SCH ×3 (06:07→21:36)
[2017-03-26] MEDS: LEVOFLOXACIN PO SCH (06:07)
[2017-03-26] MEDS: PATIENT'S OWN MEDICATION (NON-FORMULARY) (Metronidazole [Flagyl -] 500 MG) PO SCH ×3 (06:07→21:36)
[2017-03-26] MEDS: cloNIDine HCL 0.1 MG TABLET PO PRN ×2 (06:07→21:36)
[2017-03-26] MEDS: FLUoxetine HCL 20 MG CAPSULE (FP) PO SCH (10:19)
[2017-03-26] MEDS: LOSARTAN POTASSIUM 50 MG TABLET (FP) PO SCH (10:19)
[2017-03-26] MEDS: PRENATAL VITAMINS W/ FOLIC ACID TABLET (FP) PO SCH (10:19)
[2017-03-26] MEDS: NIFEdipine E.R. 90 MG TABLET (FP) PO SCH (10:20)
[2017-03-26] MEDS: HYDROCHLOROTHIAZIDE 25 MG TABLET (FP) PO SCH (10:20)
[2017-03-26] MEDS: OLANZapine 10 MG TABLET PO SCH (10:20)
[2017-03-26] MEDS: hydrOXYzine PAMOATE 50 MG CAPSULE (FP) PO PRN (10:20)
[2017-03-26] MEDS: THIAMINE HCL 100 MG TABLET (FP) PO SCH (21:36)
[2017-03-26] MEDS: NIFEdipine E.R 60 MG TABLET (UD) PO SCH (21:36)
[2017-03-26] MEDS: OLANZapine 7.5 MG TABLET PO SCH (21:36)
[2017-03-27] MEDS: busPIRone HCL 10 MG TABLET (FP) PO SCH ×3 (05:53→21:04)
[2017-03-27] MEDS: cloNIDine HCL 0.1 MG TABLET PO PRN ×2 (05:53→21:04)
[2017-03-27] MEDS: LEVOFLOXACIN PO SCH (05:54)
[2017-03-27] MEDS: PATIENT'S OWN MEDICATION (NON-FORMULARY) (Metronidazole [Flagyl -] 500 MG) PO SCH ×3 (05:54→21:05)
[2017-03-27] MEDS: RIFAMPIN PO SCH ×2 (06:55→16:33)
[2017-03-27] MEDS: hydrOXYzine PAMOATE 50 MG CAPSULE (FP) PO PRN (10:16)
[2017-03-27] MEDS: LOSARTAN POTASSIUM 50 MG TABLET (FP) PO SCH (10:16)
[2017-03-27] MEDS: FLUoxetine HCL 20 MG CAPSULE (FP) PO SCH (10:16)
[2017-03-27] MEDS: NIFEdipine E.R. 90 MG TABLET (FP) PO SCH (10:16)
[2017-03-27] MEDS: OLANZapine 10 MG TABLET PO SCH (10:16)
[2017-03-27] MEDS: HYDROCHLOROTHIAZIDE 25 MG TABLET (FP) PO SCH (10:17)
[2017-03-27] MEDS: PRENATAL VITAMINS W/ FOLIC ACID TABLET (FP) PO SCH (10:17)
[2017-03-27] MEDS: IBUPROFEN 400 MG TABLET (FP) PO PRN (12:36)
[2017-03-27] MEDS: OLANZapine 7.5 MG TABLET PO SCH (21:04)
[2017-03-27] MEDS: NIFEdipine E.R 60 MG TABLET (UD) PO SCH (21:04)
[2017-03-27] MEDS: THIAMINE HCL 100 MG TABLET (FP) PO SCH (21:04)
[2017-03-28] MEDS: hydrOXYzine PAMOATE 50 MG CAPSULE (FP) PO PRN (00:31)
[2017-03-28] MEDS: busPIRone HCL 10 MG TABLET (FP) PO SCH ×3 (06:25→21:46)
[2017-03-28] MEDS: LEVOFLOXACIN PO SCH (06:25)
[2017-03-28] MEDS: PATIENT'S OWN MEDICATION (NON-FORMULARY) (Metronidazole [Flagyl -] 500 MG) PO SCH ×3 (06:25→21:47)
[2017-03-28] MEDS: RIFAMPIN PO SCH ×2 (06:25→16:33)
[2017-03-28] MEDS: cloNIDine HCL 0.1 MG TABLET PO PRN ×2 (06:25→21:46)
[2017-03-28] MEDS: FLUoxetine HCL 20 MG CAPSULE (FP) PO SCH (10:57)
[2017-03-28] MEDS: NIFEdipine E.R. 90 MG TABLET (FP) PO SCH (10:58)
[2017-03-28] MEDS: PRENATAL VITAMINS W/ FOLIC ACID TABLET (FP) PO SCH (10:58)
[2017-03-28] MEDS: OLANZapine 10 MG TABLET PO SCH (10:58)
[2017-03-28] MEDS: HYDROCHLOROTHIAZIDE 25 MG TABLET (FP) PO SCH (10:58)
[2017-03-28] MEDS: LOSARTAN POTASSIUM 50 MG TABLET (FP) PO SCH ×2 (10:58→16:33)
[2017-03-28] MEDS: THIAMINE HCL 100 MG TABLET (FP) PO SCH (21:46)
[2017-03-28] MEDS: OLANZapine 7.5 MG TABLET PO SCH (21:46)
[2017-03-28] MEDS: NIFEdipine E.R 60 MG TABLET (UD) PO SCH (21:47)
[2017-03-28] MEDS ORDERED: cloNIDine HCL 0.1 MG TABLET PO ONE (23:00)
[2017-03-29] MEDS: PATIENT'S OWN MEDICATION (NON-FORMULARY) (Metronidazole [Flagyl -] 500 MG) PO SCH ×3 (06:15→21:29)
[2017-03-29] MEDS: busPIRone HCL 10 MG TABLET (FP) PO SCH ×3 (06:15→21:29)
[2017-03-29] MEDS: cloNIDine HCL 0.1 MG TABLET PO PRN ×2 (06:15→21:30)
[2017-03-29] MEDS: RIFAMPIN PO SCH ×2 (06:15→17:25)
[2017-03-29] MEDS: LEVOFLOXACIN PO SCH (06:15)
[2017-03-29] MEDS: IBUPROFEN 400 MG TABLET (FP) PO PRN (06:16)
[2017-03-29] MEDS: PRENATAL VITAMINS W/ FOLIC ACID TABLET (FP) PO SCH (10:42)
[2017-03-29] MEDS: FLUoxetine HCL 20 MG CAPSULE (FP) PO SCH (10:44)
[2017-03-29] MEDS: LOSARTAN POTASSIUM 50 MG TABLET (FP) PO SCH (10:44)
[2017-03-29] MEDS: OLANZapine 10 MG TABLET PO SCH (10:44)
[2017-03-29] MEDS: HYDROCHLOROTHIAZIDE 25 MG TABLET (FP) PO SCH (10:44)
[2017-03-29 12:03] VITALS: TEMP 98.2
[2017-03-29] MEDS: NIFEdipine E.R 60 MG TABLET (UD) PO SCH (21:29)
[2017-03-29] MEDS: OLANZapine 7.5 MG TABLET PO SCH (21:29)
[2017-03-29] MEDS: THIAMINE HCL 100 MG TABLET (FP) PO SCH (21:29)
[2017-03-30] MEDS: RIFAMPIN PO SCH (06:12)
[2017-03-30] MEDS: busPIRone HCL 10 MG TABLET (FP) PO SCH (06:12)
[2017-03-30] MEDS: PATIENT'S OWN MEDICATION (NON-FORMULARY) (Metronidazole [Flagyl -] 500 MG) PO SCH (06:12)
[2017-03-30] MEDS: cloNIDine HCL 0.1 MG TABLET PO PRN (06:12)
[2017-03-30] MEDS: LEVOFLOXACIN PO SCH (06:13)
[2017-03-30 07:36] VITALS: BP 159/93; PULSE 61
[2017-03-30] MEDS: OLANZapine 10 MG TABLET PO SCH (09:34)
[2017-03-30] MEDS: LOSARTAN POTASSIUM 50 MG TABLET (FP) PO SCH (09:34)
[2017-03-30] MEDS: hydrOXYzine PAMOATE 50 MG CAPSULE (FP) PO PRN (09:34)
[2017-03-30] MEDS: PRENATAL VITAMINS W/ FOLIC ACID TABLET (FP) PO SCH (09:34)
[2017-03-30] MEDS: FLUoxetine HCL 20 MG CAPSULE (FP) PO SCH (09:35)
[2017-03-30] MEDS: HYDROCHLOROTHIAZIDE 25 MG TABLET (FP) PO SCH (09:35)
--- NOTE | 2017-03-30 09:48 | PN ---
Psychiatric Progress Note Vital Signs: Vital Signs Period Temp Pulse Resp BP Sys/Carter Pulse Ox Last 24 Hr 98.2 F 61-65 18-20 147-187/77-93 Date of Session: 03/30/17 Chief Complaint:: discharge visit HPI: Patient has addressed alcohol, cocaine, opioid dependence comorbid Schizoafective disorder. Current Medications: Active Medications Generic Name Dose Route Start Last Admin Trade Name Freq PRN Reason Stop Dose Admin Acetaminophen 650 mg 03/14/17 18:15 Tylenol - PO Q4H PRN PAIN Al Hydroxide/Mg Hydroxide 30 ml 03/14/17 18:15 Mylanta Oral Suspension - PO Q6H PRN DYSPEPSIA Buspirone HCl 20 mg 03/15/17 14:00 03/30/17 06:12 Buspar - PO 20 mg TID NEWTON Administration Clonidine 0.1 mg 03/28/17 14:59 03/30/17 06:12 Catapres - PO 0.1 mg BID PRN Administration ANXIETY Eucalyptus/Menthol/Phenol/Sorbitol 1 each 03/14/17 18:15 Cepastat Lozenge - MM Q4H PRN SORE THROAT Fluoxetine HCl 40 mg 03/15/17 11:15 03/29/17 10:44 Prozac - PO 40 mg DAILY NE[place]ON Administration Guaifenesin 10 ml 03/14/17 18:15 Robitussin Dm - PO Q6H PRN COUGH Hydrochlorothiazide 50 mg 03/22/17 10:00 03/29/17 10:44 Hctz - PO 50 mg DAILY NE[place] Administration Hydroxyzine Pamoate 50 mg 03/18/17 11:31 03/28/17 00:31 Vistaril - PO 50 mg Q4H PRN Administration FOR ITCHING Ibuprofen 400 mg 03/14/17 18:15 03/29/17 06:16 Motrin - PO 400 mg Q6H PRN Administration SEVERE PAIN Loperamide HCl 4 mg 03/14/17 18:15 Imodium - PO Q6H PRN DIARRHEA Losartan Potassium 100 mg 03/28/17 15:15 03/29/17 10:44 Cozaar - PO 100 mg DAILY NE[place] Administration Magnesium Citrate 300 ml 03/14/17 18:15 Citroma - PO Q48H PRN CONSTIPATION Magnesium Hydroxide 30 ml 03/14/17 18:15 Milk Of Magnesia - PO DAILY PRN CONSTIPATION Nifedipine 60 mg 03/28/17 22:00 03/29/17 21:29 Procardia Xl - PO 60 mg HS [place] Administration Non-Formulary Medication 500 mg 03/14/17 22:00 03/30/17 06:12 Metronidazole [Flagyl -] PO 500 mg TID [place] Administration Non-Formulary Medication 500 mg 03/15/17 10:00 03/30/17 06:13 Levofloxacin [Levaquin -] PO 500 mg DAILY@0600 NE[place] Administration Non-Formulary Medication 300 mg 03/15/17 16:30 03/30/17 06:12 Rifampin [Rifadin -] PO 300 mg BIDAC [place] Administration Olanzapine 10 mg 03/22/17 10:00 03/29/17 10:44 Zyprexa - PO 10 mg DAILY [place] Administration Olanzapine 15 mg 03/21/17 14:00 03/29/17 21:29 Zyprexa - PO 15 mg HS NE[place]ON Administration Multivit/Folic Acid/Iron 1 tab 03/15/17 10:00 03/29/17 10:42 Vitamins (Sjr) - PO 1 tab DAILY [place] Administration Pseudoephedrine/Triprolidine 1 combo 03/14/17 18:15 Actifed - PO TID PRN NASAL CONGESTION Thiamine HCl 100 mg 03/14/17 22:00 03/29/17 21:29 Vitamin B1 - PO 100 mg HS NE[place] Administration Current Side Effect: No Lab tests ordered: No Lab tests reviewed: Yes Provider note:: Patient has completed today his treatment and met his identified goals, will continue to [facility]. Patient gained insights into importance of changning attitudes/behavior, utilze all supports available to prevent relapses. PAtient responded well to medication management, he denies auditory hallucinations( voices and noices) medications well tolerated, patient reports he feels much better, his sleep improved and anxiety decreased. Scripts provided for 30 days, patient will f/u by his psychiatrist at [facility] Dr.Angela Hamm. He is stable for discharge today. Total face to face time:: 35 Mental Status Exam - Mental Status Exam Alert and Oriented to: Time, Place, Person Cognitive Function: Grossly Intact Patient Appearance: Well Groomed Mood: Hopeful Affect: Appropriate, Mood Congruent Patient Behavior: Appropriate, Cooperative Speech Pattern: Clear, Appropriate Voice Loudness: Normal Thought Process: Intact, Goal Oriented Thought Disorder: Not Present Hallucinations: Denies Suicidal Ideation: Denies Homicidal Ideation: Denies Insight/Judgement: Fair Sleep: Fair Appetite: Good Muscle strength/Tone: Normal Gait/Station: Normal Psychiatric Treatment Plan - Problem List (1) Schizoaffective disorder Current Visit: Yes Qualifiers: Schizoaffective disorder type: unspecified Qualified Code(s): F25.9 - Schizoaffective disorder, unspecified (2) Alcohol dependence Current Visit: Yes (3) Cocaine dependence Current Visit: Yes (4) Opioid dependence Current Visit: Yes
== END 2017-03-30 11:00 | disposition home or self-care (01) | DRG 772 ==
LOC: YASAS 12:18 → Y5N 17:46
PROVIDERS: ADMIT Psychiatry & Neurology Psychiatry; ATTEND Psychiatry & Neurology Psychiatry
PROC: HZ42ZZZ Group Counseling for Substance Abuse Treatment, Cognitive-Behavioral (ICD-10-PCS; principal; 2017-03-14)
DX: F11.23 Opioid dependence with withdrawal (principal); F10.230 Alcohol dependence with withdrawal, uncomplicated; F14.20 Cocaine dependence, uncomplicated; F25.9 Schizoaffective disorder, unspecified; I10 Essential (primary) hypertension; Z91.5 Personal history of self-harm
CPT/HCPCS: 36415; 80053; 81003; 85027; 86593; 93005; 93010

== ENCOUNTER 2017-06-17 13:46 | Inpatient (IN) | payer OTHER ==
[2017-06-17 16:15] VITALS: BMI 37.2
--- NOTE | 2017-06-17 18:21 | HP ---
CIWA Score - CIWA Score Nausea/Vomitin Muscle Tremors: 3 Anxiety: 3 Agitation: 3 Paroxysmal Sweats: 3 Orientation: 0-Oriented Tacttile Disturbances: 1-Very Mild Itch/Numbness Auditory Disturbances: 0-None Visual Disturbances: 0-None Headache: 1-Very Mild CIWA-Ar Total Score: [address] [facility] Chief Complaint: alcohol withdrawal sx Allergies/Adverse Reactions: Allergies Allergy/AdvReac Type Severity Reaction Status Date / Time Fish Containing Products Allergy Severe Difficulty Verified 06/17/17 17:27 Breathing lisinopril Allergy Severe Swelling Verified 06/17/17 17:27 haloperidol [From Haldol] AdvReac Severe STIFFNESS Verified 06/17/17 17:27 haloperidol lactate AdvReac Severe STIFFNESS Verified 06/17/17 17:27 [From Haldol] History of Present Illness: 57 yo m with h/o chronic alcoholism reqeusting inpatietn detox from alcohol beasue of alcohol withdrawal sx. no h/o seiuzres, has had dts in past. PMHX HTN, hydraitsuppuratia, schizoaffective no si at this time. Exam Limitations: No Limitations - Ebola screening Have you traveled outside of the country in the last 21 days: No (N) Have you had contact with anyone from an Ebola affected area: No Have you been sick,other than usual withdrawal symptoms: No Do you have a fever: No - Review of Systems Constitutional: Chills, Diaphoresis, Night Sweats, Changes in sleep, Unintentional Wgt. Loss EENT: reports: No Symptoms Reported Respiratory: reports: No Symptoms reported Cardiac: reports: No Symptoms Reported GI: reports: Nausea, Poor Appetite, Poor Fluid Intake, Indigestion, Abdominal cramping : reports: No Symptoms Reported Musculoskeletal: reports: Joint Pain (knee pain arthritis) Integumentary: reports: Flushing, Sweating Neuro: reports: Headache, Numbness, Tingling, Tremors Endocrine: reports: Increased Thirst Hematology: reports: No Symptoms Reported Psychiatric: reports: Judgement Intact, Mood/Affect Appropiate, Orientated x3, Anxious, Depressed Other Systems: Reviewed and Negative Patient History - Patient Medical History Hx Anemia: No Hx Asthma: No Hx Chronic Obstructive Pulmonary Disease (COPD): No Hx Cancer: No Hx Cardiac Disorders: No Hx Congestive Heart Failure: No Hx Hypertension: Yes Hx Hypercholesterolemia: No Hx Pacemaker: No HX Cerebrovascular Accident: No Hx Seizures: No Hx Dementia: No Hx Diabetes: No Hx Gastrointestinal Disorders: No Hx Liver Disease: No Hx Genitourinary Disorders: No Hx Sexually Transmitted Disorders: No Hx Renal Disease (ESRD): No Hx Thyroid Disease: No Hx Human Immunodeficiency Virus (HIV): No Hx Hepatitis C: No Hx Depression: No Hx Suicide Attempt: No Hx Bipolar Disorder: No Hx Schizophrenia: Yes (schizoaffective disorder) - Patient Surgical History Past Surgical History: Yes Hx Neurologic Surgery: No Hx Cataract Extraction: No Hx Cardiac Surgery: No Hx Lung Surgery: No Hx Breast Surgery: No Hx Breast Biopsy: No Hx Abdominal Surgery: Yes (right inguinal hernia at age 9) Hx Appendectomy: Yes (9 YEARS OLD) Hx Genitourinary Surgery: Yes (RIGHT KIDNEY TUMOR REMOVED 2014) Hx Orthopedic Surgery: No Other Surgical History: skin grafting Anesthesia Reaction: No - PPD History Previous Implant?: Yes Documented Results: Negative w/proof Implanted On Prior [facility] Admission?: Yes Date: 03/16/17 Results: 0 mm - Reproductive History Patient is a Female of Child Bearing Age (11 -55 yrs old): No Patient : No - Smoking Cessation Smoking history: Current every day smoker Have you smoked in the past 12 months: Yes Aproximately how many cigarettes per day: 10 Hx Chewing Tobacco Use: No Initiated information on smoking cessation: Yes 'Breaking Loose' booklet given: 06/17/17 - Substance & Tx. History Hx Alcohol Use: Yes Hx Substance Use: Yes Substance Use Type: Alcohol, Cocaine, Heroin Hx Substance Use Treatment: Yes ([facility]) - Substances Abused Crack Route: Smoking Frequency: Daily Amount used: $300 Age of first use: 27 Date of Last Use: 06/16/17 Heroin Route: Inhalation Frequency: 1-3 times last 30 days Amount used: 1-2 bags Age of first use: 27 Date of Last Use: 06/12/17 Alcohol-vodka/beer Route: Oral Frequency: Daily Amount used: 3-4 pts./4 (40 oz.) Age of first use: 15 Date of Last Use: 06/17/17 Family Disease History - Family Disease History Family Disease History: Heart Disease: Mother, Brother, Sister, Other: Father ( /SHOT) Admission Physical Exam [facility] - Vital Signs Vital Signs: Vital Signs - 24 hr 06/17/17 16:07 Temperature 97.1 F L Pulse Rate 71 Respiratory 18 Rate Blood Pressure 167/84 - Physical General Appearance: Yes: Nourished, Appropriately Dressed, Disheveled, Mild Distress, Obese, Tremorous, Irritable, Sweating, Anxious HEENTM: Yes: Within Normal Limits, EOMI, Hearing grossly Normal, Normal ENT Inspection, Normocephalic, Normal Voice, CJ, Pharynx Normal Respiratory: Yes: Within Normal Limits, Chest Non-Tender, Lungs Clear, Normal Breath Sounds, No Respiratory Distress, No Accessory Muscle Use Neck: Yes: Within Normal Limits, No masses,lesions,Nodules, Supple, Trachea in good position Breast: Yes: Breast Exam Deferred Cardiology: Yes: Within Normal Limits, Regular Rhythm, Regular Rate, S1, S2 Abdominal: Yes: Within Normal Limits, Normal Bowel Sounds, Non Tender, Increased Bowel Sounds, Protuberent, Distended Genitourinary: Yes: Within Normal Limits, Other (hydranitis groin area and between buttocks) Back: Yes: Muscle Spasm Musculoskeletal: Yes: Joint Stiffness (arthritis knee) Extremities: Yes: Normal Capillary Refill, Normal Range of Motion, Non-Tender, Tremors Neurological: Yes: 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 NML intact, Fully Oriented, Alert, Motor Strength 5/5, Normal Response, Depressed Affect Integumentary: Yes: Normal Color, Warm, Diaphoresis, Moist Lymphatic: Yes: Within Normal Limits - Addiitonal Findings: withdrawal sx - Diagnostic (1) Alcohol dependence with uncomplicated withdrawal Current Visit: No Status: Acute (2) Cocaine dependence Current Visit: No Status: Acute (3) Hypertension Current Visit: No Status: Acute Qualifiers: (4) Cocaine dependence, uncomplicated Current Visit: No Status: Chronic (5) Schizoaffective disorder Current Visit: No Status: Suspected Qualifiers: (6) Nicotine dependence Current Visit: Yes Status: Acute (7) Hydradenitis Current Visit: Yes Status: Acute Cleared for Admission [facility] - Detox or Rehab [facility] Level of Care: Medically Managed Detox Regimen/Protocol: Librium [facility] Breath Alcohol Content Breath Alcohol Content: 0 Urine Drug Screen - Results Drug Screen Negative: No Urine Drug Screen Results: JOHN-Cocaine
[2017-06-17] MEDS ORDERED: MAG HYDROX/AL HYDROX/SIMETH 30 ML UNIT-DOSE CUP PO PRN (18:22)
[2017-06-17] MEDS ORDERED: chlordiazePOXIDE HCL 25 MG CAPSULE PO PRN (18:22)
[2017-06-17] MEDS ORDERED: guaiFENesin/D-METHORPHAN HB 10 ML UNIT-DOSE CUPS PO PRN (18:22)
[2017-06-17] MEDS ORDERED: P-EPHED 60MG/TRIPROLIDI 2.5MG TABLET PO PRN (18:22)
[2017-06-17] MEDS ORDERED: hydrOXYzine PAMOATE 50 MG CAPSULE (FP) PO PRN (18:22)
[2017-06-17] MEDS ORDERED: MENTHOL/PHENOL 1 EACH UD MM PRN (18:22)
[2017-06-17] MEDS ORDERED: MAGNESIUM CITRATE 300 ML BOTTLE PO PRN (18:22)
[2017-06-17] MEDS ORDERED: LOPERAMIDE HCL 2 MG CAPSULE PO PRN (18:22)
[2017-06-17] MEDS ORDERED: chlordiazePOXIDE HCL 25 MG CAPSULE PO ONE (18:22)
[2017-06-17] MEDS ORDERED: MAGNESIUM HYDROX 2400MG/30ML ORAL SUSPENSION 30 ML CUP PO PRN (18:22)
[2017-06-17] MEDS ORDERED: NICOTINE POLACRILEX 4 MG GUM BC PRN (18:22)
[2017-06-17] MEDS ORDERED: ACETAMINOPHEN 325 MG TABLET (FP) PO PRN (18:22)
[2017-06-17] MEDS ORDERED: IBUPROFEN 400 MG TABLET (FP) PO PRN (18:22)
[2017-06-17] MEDS ORDERED: HYDROCHLOROTHIAZIDE 50 MG TABLET PO SCH (18:30)
[2017-06-17] MEDS: ASPIRIN 81 MG CHEWABLE TABLETS PO SCH (22:07)
[2017-06-17] MEDS: NIFEdipine E.R 60 MG TABLET (UD) PO SCH (22:08)
[2017-06-17] MEDS: THIAMINE HCL 100 MG TABLET (FP) PO SCH (22:08)
[2017-06-17] MEDS: metroNIDAZOLE 250 MG TABLET PO SCH (22:08)
[2017-06-17] MEDS: NICOTINE 21 MG/24 HOURS TOPICAL PATCH TD SCH (22:09)
[2017-06-17 22:20] LABS: URINE APPEARANCE CLEAR; URINE BILIRUBIN NEGATIVE (NEGATIVE); URINE BLOOD 1+ (NEGATIVE); URINE COLOR AMBER; URINE GLUCOSE (UA) NEGATIVE (NEGATIVE); URINE KETONE NEGATIVE (NEGATIVE); URINE LEUK ESTERASE TRACE (NEGATIVE); URINE NITRITE NEGATIVE (NEGATIVE); URINE UROBILINOGEN NEGATIVE mg/dL (0.2-1.0)
[2017-06-17 22:23] LABS: URINE PROTEIN 1+ (NEGATIVE)
[2017-06-17 22:48] LABS: URINE MUCUS RARE
[2017-06-17] MEDS: chlordiazePOXIDE HCL 25 MG CAPSULE PO SCH (23:13)
[2017-06-18] MEDS: RIFAMPIN 300 MG CAPSULE PO SCH ×3 (00:04→22:23)
[2017-06-18] MEDS: metroNIDAZOLE 250 MG TABLET PO SCH ×3 (05:56→22:22)
[2017-06-18] MEDS: chlordiazePOXIDE HCL 25 MG CAPSULE PO SCH ×4 (05:56→22:22)
[2017-06-18] MEDS ORDERED: LOSARTAN POTASSIUM 100 MG TABLET PO SCH (10:00)
[2017-06-18] MEDS: ASPIRIN 81 MG CHEWABLE TABLETS PO SCH (10:18)
[2017-06-18] MEDS: SPIRONOLACTONE 25 MG TABLET (FP) PO SCH (10:18)
[2017-06-18] MEDS: PRENATAL VITAMINS W/ FOLIC ACID TABLET (FP) PO SCH (10:19)
[2017-06-18] MEDS: HYDROCHLOROTHIAZIDE 25 MG TABLET (FP) PO SCH (10:20)
[2017-06-18] MEDS: NICOTINE 21 MG/24 HOURS TOPICAL PATCH TD SCH (10:24)
[2017-06-18] MEDS: NIFEdipine E.R. 90 MG TABLET (FP) PO SCH (10:25)
[2017-06-18 10:35] LABS: HEMATOCRIT 34.2 % (35.4-49); HEMOGLOBIN 11.3 GM/dL (11.7-16.9); MCH 29.1 pg (25.7-33.7); MEAN PLT VOLUME 7.9 fl (7.5-11.1); PLATELET COUNT 279 K/MM3 (134-434); RBC 3.88 M/mm3 (4.00-5.60); RDW 14.3 % (11.9-15.9); WHITE BLOOD COUNT 5.9 K/mm3 (4.0-10.0)
[2017-06-18 10:39] LABS: CHLORIDE 106 mmol/L (98-107); POTASSIUM 3.1 mmol/L (3.5-5.1); SODIUM 143 mmol/L (136-145)
[2017-06-18 10:48] LABS: ALBUMIN 3.1 g/dl (3.4-5.0); ALK PHOS 184 U/L (45-117); ANION GAP 8 (8-16); BILIRUBIN,TOTAL 0.3 mg/dL (0.2-1.0); BLOOD UREA NITROGEN 12 mg/dL (7-18); CALCIUM 8.2 mg/dL (8.5-10.1); CO2 29 mmol/L (21-32); CREATININE 1.1 mg/dL (0.7-1.3); GLUCOSE,RANDOM 100 mg/dL (74-106); SGOT/AST 33 U/L (15-37); SGPT/ALT 46 U/L (12-78)
[2017-06-18] MEDS: LOSARTAN POTASSIUM 50 MG TABLET (FP) PO SCH (12:35)
--- NOTE | 2017-06-18 13:05 | PN ---
[facility] CIWA - CIWA Score Nausea/Vomitin Muscle Tremors: 3 Anxiety: 3 Agitation: 3 Paroxysmal Sweats: 3 Orientation: 0-Oriented Tacttile Disturbances: 0-None Auditory Disturbances: 0-None Visual Disturbances: 0-None Headache: 0-None Present CIWA-Ar Total Score: 15 S Progress Note (SOAP) Subjective: shakes sweats sleepy Objective: 06/18/17 13:02 sleeping in bed, arousable to verbal stimuli No acute distress noted Vital Signs Temperature 97.3 F L 06/18/17 10:00 Pulse Rate 63 06/18/17 10:00 Respiratory Rate 16 06/18/17 10:00 Blood Pressure 165/90 06/18/17 10:00 O2 Sat by Pulse Oximetry (%) Laboratory Last Values WBC 5.9 K/mm3 (4.0-10.0) 06/18/17 08:00 RBC 3.88 M/mm3 (4.00-5.60) L 06/18/17 08:00 Hgb 11.3 GM/dL (11.7-16.9) L 06/18/17 08:00 Hct 34.2 % (35.4-49) L 06/18/17 08:00 MCV 88.0 fl (80-96) 06/18/17 08:00 MCH 29.1 pg (25.7-33.7) 06/18/17 08:00 MCHC 33.0 g/dl (32.0-35.9) 06/18/17 08:00 RDW 14.3 % (11.9-15.9) 06/18/17 08:00 Plt Count 279 K/MM3 (134-434) D 06/18/17 08:00 MPV 7.9 fl (7.5-11.1) 06/18/17 08:00 Sodium 143 mmol/L (136-145) 06/18/17 08:00 Potassium 3.1 mmol/L (3.5-5.1) L 06/18/17 08:00 Chloride 106 mmol/L (98-107) 06/18/17 08:00 Carbon Dioxide 29 mmol/L (21-32) 06/18/17 08:00 Anion Gap 8 (8-16) 06/18/17 08:00 BUN 12 mg/dL (7-18) D 06/18/17 08:00 Creatinine 1.1 mg/dL (0.7-1.3) 06/18/17 08:00 Creat Clearance w eGFR > 60 (>60) 06/18/17 08:00 Random Glucose 100 mg/dL (74-106) D 06/18/17 08:00 Calcium 8.2 mg/dL (8.5-10.1) L 06/18/17 08:00 Total Bilirubin 0.3 mg/dL (0.2-1.0) D 06/18/17 08:00 AST 33 U/L (15-37) D 06/18/17 08:00 ALT 46 U/L (12-78) D 06/18/17 08:00 Alkaline Phosphatase 184 U/L (45-117) H 06/18/17 08:00 Total Protein 7.0 g/dl (6.4-8.2) 06/18/17 08:00 Albumin 3.1 g/dl (3.4-5.0) L 06/18/17 08:00 Urine Color Naz 06/17/17 20:25 Urine Appearance Clear 06/17/17 20:25 Urine pH 6.0 (5.0-8.0) 06/17/17 20:25 Ur Specific [place] 1.028 (1.001-1.035) 06/17/17 20:25 Urine Protein 1+ (NEGATIVE) H 06/17/17 20:25 Urine Glucose (UA) Negative (NEGATIVE) 06/17/17 20:25 Urine Ketones Negative (NEGATIVE) 06/17/17 20:25 Urine Blood 1+ (NEGATIVE) H 06/17/17 20:25 Urine Nitrite Negative (NEGATIVE) 06/17/17 20:25 Urine Bilirubin Negative (NEGATIVE) 06/17/17 20:25 Urine Urobilinogen Negative mg/dL (0.2-1.0) 06/17/17 20:25 Ur Leukocyte Esterase Trace (NEGATIVE) 06/17/17 20:25 Urine WBC (Auto) 6 /hpf (3-5) 06/17/17 20:25 Urine RBC (Auto) 3 /hpf (0-3) 06/17/17 20:25 Urine Mucus Rare 06/17/17 20:25 labs noted Assessment: 06/18/17 13:04 withdrawal sx low potassium Plan: continue detox potassium supplements
[2017-06-18] MEDS: DICLOFENAC SODIUM PO SCH (14:30)
--- NOTE | 2017-06-18 15:59 | EKG ---
Test Reason : Blood Pressure : / mmHG Vent. Rate : 060 BPM Atrial Rate : 060 BPM P-R Int : 178 ms QRS Dur : 088 ms QT Int : 472 ms P-R-T Axes : 074 -02 042 degrees QTc Int : 472 ms NORMAL SINUS RHYTHM NORMAL ECG WHEN COMPARED WITH ECG OF 15-MAR-2017 09:12, CRITERIA FOR SEPTAL INFARCT ARE NO LONGER PRESENT T WAVE INVERSION NO LONGER EVIDENT IN INFERIOR LEADS Confirmed by JOEL REN MD ([id number]) on 06/18/2017 3:58:46 PM Referred By: Confirmed By:JOEL REN MD
--- NOTE | 2017-06-18 17:53 | CONSULT ---
[facility] Psychiatric Consult - Data Date of interview: 06/18/17 Admission source: [facility] Identifying data: Readmission to [facility] for this 57 y/o AA male seeking detox treatment on for alcohol,heroin and cocaine dependence.Patient is ,a father of three,domiciled,unemployed and supported on SSI benefits. Substance Abuse History: Discussed with patient.History confirmed.See current [facility] report for details . Smoking history: Current every day smoker. Have you smoked in the past 12 months: Yes. Aproximately how many cigarettes per day: 10. Hx Chewing Tobacco Use: No. Initiated information on smoking cessation: Yes. 'Breaking Loose' booklet given: 06/17/17. - Substance & Tx. History. Hx Alcohol Use: Yes. Hx Substance Use: Yes. Substance Use Type: Alcohol, Cocaine , Heroin. Hx Substance Use Treatment: Yes ([facility]). - Substances Abused. Crack. Route: Smoking. Frequency: Daily. Amount used : $300. Age of first use: 27. Date of Last Use: 06/16/17. Heroin. Route: Inhalation. Frequency: 1-3 times last 30 days. Amount used: 1-2 bags. Age of first use: 27. Date of Last Use: 06/12/17. Alcohol-vodka/beer. Route: Oral. Frequency: Daily. Amount used: 3-4 pts./4 (40 oz.). Age of first use: 15. Date of Last Use: 06/17/17 Medical History: Hypertension,hydradenitis suppurativa,past history of appendectomy + surgical excision of left renal mass (2014) + right inguinal herniorraphy. Psychiatric History: Patient admits to a history of multiple psychiatric hospitalizations ([facility] [place]Early onset of psychiatric illness (adolescence).Diagnosed with Schizoaffective Disorder.Ses a psychiatrist + a therapist - Gladys Cárdenas - at a [facility] ([facility]) in the [place].Managed on a regimen of olanzapine and fluoxetine (doses not recalled by patient).Mr Pineda admits to sub-optimal adherence to his medications.Totally ignorant of date of his last medication intake.Patient reports a suicide attempt (deliberate overdose with medications) about 1-2 years ago. Physical/Sexual Abuse/Trauma History: Patient denies history of abuse. Additional Comment: Urine Drug Screen Results: JOHN-Cocaine.Noted. Mental Status Exam - Mental Status Exam Alert and Oriented to: Time, Place, Person Cognitive Function: Good Patient Appearance: Well Groomed Mood: Hopeful, Euthymic Affect: Appropriate, Normal Range Patient Behavior: Appropriate, Cooperative Speech Pattern: Clear, Appropriate Voice Loudness: Normal Thought Process: Goal Oriented Thought Disorder: Not Present Hallucinations: Denies Suicidal Ideation: Denies Homicidal Ideation: Denies Insight/Judgement: Impaired Sleep: Poorly, Difficulty falling asleep Appetite: Good Muscle strength/Tone: Normal Gait/Station: Normal Psychiatric Findings - Problem List ([place] 1, 2,3) (1) Opioid dependence with withdrawal Current Visit: Yes Status: Acute (2) Alcohol dependence with uncomplicated withdrawal Current Visit: Yes Status: Acute (3) Cocaine dependence Current Visit: Yes Status: Acute (4) Nicotine dependence Current Visit: Yes Status: Acute (5) Schizoaffective disorder Current Visit: Yes Status: Chronic Qualifiers: (6) Insomnia Current Visit: Yes Status: Acute - Initial Treatment Plan Initial Treatment Plan: Psychoeducation and support.Sleep hygiene.Detoxification protocol in effect.Medications : zyprexa 20 mg po daily + prozac 60 mg po daily (bottles seen / filled on 06/01/17) + ambien 5 mg po hs prn.Side effects/benefits of these drugs are discussed with patient.Mr Pineda is in agreement with this plan of care.Observation.
[2017-06-18] MEDS ORDERED: OLANZapine 10 MG TABLET PO SCH (22:00)
[2017-06-18] MEDS: NIFEdipine E.R 60 MG TABLET (UD) PO SCH (22:22)
[2017-06-18] MEDS: THIAMINE HCL 100 MG TABLET (FP) PO SCH (22:22)
[2017-06-18] MEDS: ZOLPIDEM TARTRATE 5 MG TABLET PO PRN (22:22)
[2017-06-18] MEDS: POTASSIUM CHLORIDE ORAL LIQUID 20 MEQ/15 ML PO SCH (22:23)
[2017-06-18] MEDS ORDERED: OLANZapine 7.5 MG TABLET PO ONE (22:42)
--- NOTE | 2017-06-18 23:03 | PN ---
[facility] Progress Note Note: Psychiatry Attending on-call's note : Called by nurse to enter order for zyprexa. Mr Pineda is reported to be agitated and increasingly impulsive. Patient insists on getting zyprexa 15 mg orally tonight. Argues that he is prescribed 20 mg/am + 15 mg/hs. Evaluated by travel writer (a couple of hours earlier). Bottles of medications were checked for accuracy. Plan : zyprexa 15 mg po STAT. zyprexa 15 mg po hs zyprexa 20 mg po daily Doses are confirmed.
[2017-06-19] MEDS: metroNIDAZOLE 250 MG TABLET PO SCH ×3 (05:19→22:05)
[2017-06-19] MEDS: chlordiazePOXIDE HCL 25 MG CAPSULE PO SCH ×3 (05:19→17:51)
[2017-06-19] MEDS ORDERED: OLANZapine 7.5 MG TABLET PO SCH (10:00)
[2017-06-19] MEDS ORDERED: OLANZapine 10 MG TABLET PO SCH (10:00)
[2017-06-19] MEDS ORDERED: FLUoxetine HCL 20 MG CAPSULE (FP) PO SCH (10:00)
[2017-06-19] MEDS: ASPIRIN 81 MG CHEWABLE TABLETS PO SCH (10:14)
[2017-06-19] MEDS: POTASSIUM CHLORIDE ORAL LIQUID 20 MEQ/15 ML PO SCH ×2 (10:14→22:05)
[2017-06-19] MEDS: FLUoxetine HCL 20 MG CAPSULE (FP) PO SCH (10:14)
[2017-06-19] MEDS: NIFEdipine E.R. 90 MG TABLET (FP) PO SCH (10:15)
[2017-06-19] MEDS: LOSARTAN POTASSIUM 50 MG TABLET (FP) PO SCH (10:15)
[2017-06-19] MEDS: HYDROCHLOROTHIAZIDE 25 MG TABLET (FP) PO SCH (10:15)
[2017-06-19] MEDS: RIFAMPIN 300 MG CAPSULE PO SCH ×2 (10:15→23:15)
[2017-06-19] MEDS: PRENATAL VITAMINS W/ FOLIC ACID TABLET (FP) PO SCH (10:15)
[2017-06-19] MEDS: SPIRONOLACTONE 25 MG TABLET (FP) PO SCH (10:15)
[2017-06-19] MEDS: DICLOFENAC SODIUM PO SCH (10:16)
[2017-06-19] MEDS: NICOTINE 21 MG/24 HOURS TOPICAL PATCH TD SCH (10:19)
--- NOTE | 2017-06-19 10:42 | PN ---
[facility] CIWA - CIWA Score Nausea/Vomitin-No Nausea/No Vomiting Muscle Tremors: 3 Anxiety: 3 Agitation: 3 Paroxysmal Sweats: 1-Minimal Palms Moist Orientation: 0-Oriented Tacttile Disturbances: 0-None Auditory Disturbances: 0-None Visual Disturbances: 0-None Headache: 0-None Present CIWA-Ar Total Score: 10 [facility] Progress Note (SOAP) Subjective: sweat tremor anxiety irritability Objective: 06/19/17 10:41 Vital Signs Temperature 97.6 F 06/19/17 09:59 Pulse Rate 65 06/19/17 09:59 Respiratory Rate 20 06/19/17 09:59 Blood Pressure 147/81 06/19/17 09:59 O2 Sat by Pulse Oximetry (%) Laboratory Last Values WBC 5.9 K/mm3 (4.0-10.0) 06/18/17 08:00 RBC 3.88 M/mm3 (4.00-5.60) L 06/18/17 08:00 Hgb 11.3 GM/dL (11.7-16.9) L 06/18/17 08:00 Hct 34.2 % (35.4-49) L 06/18/17 08:00 MCV 88.0 fl (80-96) 06/18/17 08:00 MCH 29.1 pg (25.7-33.7) 06/18/17 08:00 MCHC 33.0 g/dl (32.0-35.9) 06/18/17 08:00 RDW 14.3 % (11.9-15.9) 06/18/17 08:00 Plt Count 279 K/MM3 (134-434) D 06/18/17 08:00 MPV 7.9 fl (7.5-11.1) 06/18/17 08:00 Sodium 143 mmol/L (136-145) 06/18/17 08:00 Potassium 3.1 mmol/L (3.5-5.1) L 06/18/17 08:00 Chloride 106 mmol/L (98-107) 06/18/17 08:00 Carbon Dioxide 29 mmol/L (21-32) 06/18/17 08:00 Anion Gap 8 (8-16) 06/18/17 08:00 BUN 12 mg/dL (7-18) D 06/18/17 08:00 Creatinine 1.1 mg/dL (0.7-1.3) 06/18/17 08:00 Creat Clearance w eGFR > 60 (>60) 06/18/17 08:00 Random Glucose 100 mg/dL (74-106) D 06/18/17 08:00 Calcium 8.2 mg/dL (8.5-10.1) L 06/18/17 08:00 Total Bilirubin 0.3 mg/dL (0.2-1.0) D 06/18/17 08:00 AST 33 U/L (15-37) D 06/18/17 08:00 ALT 46 U/L (12-78) D 06/18/17 08:00 Alkaline Phosphatase 184 U/L (45-117) H 06/18/17 08:00 Total Protein 7.0 g/dl (6.4-8.2) 06/18/17 08:00 Albumin 3.1 g/dl (3.4-5.0) L 06/18/17 08:00 Urine Color Naz 06/17/17 20:25 Urine Appearance Clear 06/17/17 20:25 Urine pH 6.0 (5.0-8.0) 06/17/17 20:25 Ur Specific [place] 1.028 (1.001-1.035) 06/17/17 20:25 Urine Protein 1+ (NEGATIVE) H 06/17/17 20:25 Urine Glucose (UA) Negative (NEGATIVE) 06/17/17 20:25 Urine Ketones Negative (NEGATIVE) 06/17/17 20:25 Urine Blood 1+ (NEGATIVE) H 06/17/17 20:25 Urine Nitrite Negative (NEGATIVE) 06/17/17 20:25 Urine Bilirubin Negative (NEGATIVE) 06/17/17 20:25 Urine Urobilinogen Negative mg/dL (0.2-1.0) 06/17/17 20:25 Ur Leukocyte Esterase Trace (NEGATIVE) 06/17/17 20:25 Urine WBC (Auto) 6 /hpf (3-5) 06/17/17 20:25 Urine RBC (Auto) 3 /hpf (0-3) 06/17/17 20:25 Urine Mucus Rare 06/17/17 20:25 RPR Titer Nonreactive (NONREACTIVE) 06/18/17 08:00 lab noted continue potassium Assessment: 06/19/17 10:41 withdrawal sx Plan: continue detox repeat K+ serum
[2017-06-19] MEDS: chlordiazePOXIDE 5 MG CAPSULE PO SCH (22:04)
[2017-06-19] MEDS: ZOLPIDEM TARTRATE 5 MG TABLET PO PRN (22:05)
[2017-06-19] MEDS: THIAMINE HCL 100 MG TABLET (FP) PO SCH (22:05)
[2017-06-19] MEDS: NIFEdipine E.R 60 MG TABLET (UD) PO SCH (22:05)
[2017-06-19] MEDS: OLANZapine 7.5 MG TABLET PO SCH (23:15)
[2017-06-20] MEDS: chlordiazePOXIDE 5 MG CAPSULE PO SCH ×3 (05:41→18:04)
[2017-06-20] MEDS: metroNIDAZOLE 250 MG TABLET PO SCH ×3 (05:42→22:09)
[2017-06-20] MEDS: DICLOFENAC SODIUM PO SCH (10:16)
[2017-06-20] MEDS: POTASSIUM CHLORIDE ORAL LIQUID 20 MEQ/15 ML PO SCH ×2 (10:16→22:09)
[2017-06-20] MEDS: RIFAMPIN 300 MG CAPSULE PO SCH ×2 (10:17→22:09)
[2017-06-20] MEDS: ASPIRIN 81 MG CHEWABLE TABLETS PO SCH (10:17)
[2017-06-20] MEDS: PRENATAL VITAMINS W/ FOLIC ACID TABLET (FP) PO SCH (10:17)
[2017-06-20] MEDS: FLUoxetine HCL 20 MG CAPSULE (FP) PO SCH (10:17)
[2017-06-20] MEDS: NIFEdipine E.R. 90 MG TABLET (FP) PO SCH (10:18)
[2017-06-20] MEDS: HYDROCHLOROTHIAZIDE 25 MG TABLET (FP) PO SCH (10:18)
[2017-06-20] MEDS: SPIRONOLACTONE 25 MG TABLET (FP) PO SCH (10:18)
[2017-06-20] MEDS: NICOTINE 21 MG/24 HOURS TOPICAL PATCH TD SCH (10:19)
--- NOTE | 2017-06-20 10:20 | PN ---
S Progress Note (SOAP) Subjective: ALERT,IRRITABLE,ANXIOUS,INTERRUPTED SLEEP, Objective: 06/20/17 10:19 Vital Signs Temperature 97.3 F L 06/20/17 06:13 Pulse Rate 50 L 06/20/17 06:13 Respiratory Rate 18 06/20/17 06:13 Blood Pressure 137/67 06/20/17 06:13 O2 Sat by Pulse Oximetry (%) Assessment: 06/20/17 10:19 WITHDRAWAL SYMPTOM Plan: CONTINUE DETOX,DISCHARGE IN AM
[2017-06-20] MEDS: LOSARTAN POTASSIUM 50 MG TABLET (FP) PO SCH (10:56)
[2017-06-20] MEDS: chlordiazePOXIDE HCL 10 MG CAPSULE PO SCH (22:09)
[2017-06-20] MEDS: THIAMINE HCL 100 MG TABLET (FP) PO SCH (22:09)
[2017-06-20] MEDS: OLANZapine 7.5 MG TABLET PO SCH (22:09)
[2017-06-20] MEDS: NIFEdipine E.R 60 MG TABLET (UD) PO SCH (22:10)
[2017-06-20] MEDS: ZOLPIDEM TARTRATE 5 MG TABLET PO PRN (22:10)
[2017-06-21] MEDS: chlordiazePOXIDE HCL 10 MG CAPSULE PO SCH (05:13)
[2017-06-21] MEDS: metroNIDAZOLE 250 MG TABLET PO SCH (05:14)
[2017-06-21] MEDS ORDERED: LOSARTAN POTASSIUM 50 MG TABLET (FP) PO ONE (07:05)
--- NOTE | 2017-06-21 08:08 | DS ---
[facility] Detox Discharge Summary Admission Date: 06/17/17 Discharge Date: 06/21/17 - History Present History: Alcohol Dependence, Cocaine Dependence Additional Comments: follow up with after [facility] program as arrangement Pertinent Past History: hypertension nicotine dependence hydradinitis schizoaffective disorder - Physical Exam Results Vital Signs: Vital Signs Temperature 99.3 F 06/21/17 06:14 Pulse Rate 59 L 06/21/17 06:14 Respiratory Rate 20 06/21/17 06:14 Blood Pressure 182/77 06/21/17 06:14 O2 Sat by Pulse Oximetry (%) Pertinent Admission Physical Exam Findings: withdrawal symptom and finding - Treatment Hospital Course: Detox Protocol Followed, Detoxed Safely, Responded well, Discharged Condition Good, Rehab Referral Accepted Patient has Accepted a Rehab Referral [facility]: [facility] - Medication Discharge Medications: Ambulatory Orders Losartan Potassium [Cozaar] 100 mg PO DAILY #30 tablet 03/29/17 Nifedipine ER [Procardia XL -] 60 mg PO HS #30 tab.er.24 03/29/17 Nifedipine ER [Procardia XL -] 90 mg PO DAILY #60 tab.er.24 03/29/17 Rifampin [Rifadin -] 300 mg PO BID #60 capsule 03/29/17 levoFLOXacin [Levaquin -] 500 mg PO DAILY #30 tablet 03/29/17 Olanzapine [Zyprexa -] 15 mg PO HS #30 tablet 03/30/17 Aspirin [ASA -] 81 mg PO DAILY 06/17/17 Diclofenac Sodium [Voltaren-Xr] 100 mg PO DAILY 06/17/17 Fluoxetine HCl [Prozac -] 60 mg PO DAILY 06/17/17 Hydrochlorothiazide [Hctz -] 25 mg PO DAILY 06/17/17 Metronidazole 500 mg PO TID 06/17/17 Olanzapine [Zyprexa] 20 mg PO AM 06/17/17 Spironolactone [Aldactone] 50 mg PO DAILY 06/17/17 - Diagnosis (1) Alcohol dependence with uncomplicated withdrawal Current Visit: Yes Status: Acute (2) Cocaine dependence Current Visit: Yes Status: Acute (3) Nicotine dependence Current Visit: Yes Status: Acute (4) Hydradenitis Current Visit: Yes Status: Acute (5) Schizoaffective disorder Current Visit: Yes Status: Chronic Qualifiers: (6) Hypertension Current Visit: No Status: Acute Qualifiers: (7) Hypokalemia Current Visit: Yes Status: Acute - AMA Did Patient Leave Against Medical Advice: No
[2017-06-21] MEDS: POTASSIUM CHLORIDE ORAL LIQUID 20 MEQ/15 ML PO SCH (09:33)
[2017-06-21] MEDS: FLUoxetine HCL 20 MG CAPSULE (FP) PO SCH (09:34)
[2017-06-21] MEDS: DICLOFENAC SODIUM PO SCH (09:34)
[2017-06-21] MEDS: SPIRONOLACTONE 25 MG TABLET (FP) PO SCH (09:34)
[2017-06-21] MEDS: ASPIRIN 81 MG CHEWABLE TABLETS PO SCH (09:34)
[2017-06-21] MEDS: NIFEdipine E.R. 90 MG TABLET (FP) PO SCH (09:35)
[2017-06-21] MEDS: PRENATAL VITAMINS W/ FOLIC ACID TABLET (FP) PO SCH (09:35)
[2017-06-21] MEDS: RIFAMPIN 300 MG CAPSULE PO SCH (09:35)
[2017-06-21] MEDS: NICOTINE 21 MG/24 HOURS TOPICAL PATCH TD SCH (09:35)
[2017-06-21 10:21] VITALS: BP 159/82; PULSE 66; TEMP 98.1
== END 2017-06-21 10:00 | disposition home or self-care (01) | DRG 774 ==
LOC: YASAS 13:46 → Y6N 18:57
PROVIDERS: ADMIT Internal Medicine; ATTEND Internal Medicine
PROC: HZ2ZZZZ Detoxification Services for Substance Abuse Treatment (ICD-10-PCS; principal; 2017-06-17)
DX: F10.230 Alcohol dependence with withdrawal, uncomplicated (principal); F14.20 Cocaine dependence, uncomplicated; F17.210 Nicotine dependence, cigarettes, uncomplicated; F25.9 Schizoaffective disorder, unspecified; I10 Essential (primary) hypertension; E87.6 Hypokalemia; L73.2 Hidradenitis suppurativa; E66.9 Obesity, unspecified; Z68.37 Body mass index [BMI] 37.0-37.9, adult; Z79.82 Long term (current) use of aspirin; Z91.013 Allergy to seafood; Z88.8 Allergy status to other drugs, medicaments and biological substances
CPT/HCPCS: 36415; 80053; 81003; 81015; 84132; 85027; 86593; 93005; 93010